=== PATIENT | male | born 1945 | race Caucasian/White ===

== ENCOUNTER 2024-08-22 06:14 | Day surgery (SDC) | payer OTHER, SELFPAY ==
[2024-08-22 11:53] VITALS: BMI 21.6
[2024-08-22 12:08] VITALS: BP 130/87
--- NOTE | 2024-08-22 12:25 | PTCARENOTE ---
Patient is taking an uber home. Patient also has no one at home with him post procedure. Recruitment Director Sukhjinder made aware. Dr. Lowry is also aware that patient does not have anyone home with him. Patient states that he does have people he can call if he
needed help. Patient signed form that he is taking an Uber home. Will monitor patient.
[2024-08-22 14:04] VITALS: BP 118/73
[2024-08-22 14:15] VITALS: BP 121/88
[2024-08-22 14:30] VITALS: BP 146/97
[2024-08-22 14:52] VITALS: BP 146/92
[2024-08-22] MEDS: ZOFRAN 4 MG IV (14:56)
[2024-08-22 15:00] VITALS: BP 139/84
== END 2024-08-22 15:58 | disposition home or self-care (01) ==
LOC: SDS 06:14
PROVIDERS: ATTENDING PHYSICIAN Internal Medicine Gastroenterology
DX: K25.9 Gastric ulcer, unspecified as acute or chronic, without hemorrhage or perforation (principal); R59.0 Localized enlarged lymph nodes; C15.3 Malignant neoplasm of upper third of esophagus; C15.5 Malignant neoplasm of lower third of esophagus; K86.9 Disease of pancreas, unspecified; K22.81 Esophageal polyp; R93.3 Abnormal findings on diagnostic imaging of other parts of digestive tract; C77.2 Secondary and unspecified malignant neoplasm of intra-abdominal lymph nodes
CPT/HCPCS: 43242; 88172; 88173; 88305; 88177; 88313; 88341; 88342; 88360